=== PATIENT | female | born 1995 | race Caucasian/White ===

== ENCOUNTER → 2017-01-23 | Outpatient (CLI) | payer OTHER ==
[2017-01-23 15:15] LABS: HEMOGLOBIN A1C 5.27 % (4.2-6.0)
[2017-01-23 15:48] LABS: BLOOD UREA NITROGEN 13 mg/dL (7-22); BUN/CREATININE RATIO 14.44 (6-20); CALCIUM 9.5 mg/dL (8.7-10.7); EST GLOMERULAR FILTRATION > 60 (>60 ml/min/1.73m(2)); SERUM ALBUMIN 4.1 g/dL (3.5-4.8)
== END ==
LOC: LAB 09:18
PROVIDERS: ATTEND Physician Assistant Medical
DX: R53.83 Other fatigue (principal); R35.0 Frequency of micturition; R63.5 Abnormal weight gain; Z83.3 Family history of diabetes mellitus
CPT/HCPCS: 80053; 83036; 84443